=== PATIENT | female | born 1965 | race Caucasian/White ===

== ENCOUNTER 2019-07-15 | Emergency (ER) | payer OTHER | END 2019-07-15 15:50 | disposition home or self-care (01) | CPT/HCPCS: 93005; 85025; 80048; 36415; 83735; 81025; 85610; 80076; 81003; 84484; 83880; 87804 ×2; 70450; 96360; 99285; J7030 ==

== ENCOUNTER 2020-06-17 21:43 | Emergency (ER) | payer OTHER ==
--- OUTSIDE RECORDS SUMMARY | 2020-06-17 21:45 | XMS REPORT | Continuity of Care Document ---
:1965 Author Organization [facility] t Address [address] [place] [address] Care Team Providers Name Role Phone Lab, Fam Pob I Attending Clinician Unavailable Problems This patient has no known problems. Allergies, Adverse Reactions, Alerts This patient has no known allergies or adverse reactions. Medications This patient has no known medications. Procedures This patient has no known procedures. Encounters Start End Encounter Admission Attending Care Care Encounter Source Date/Time Date/Time Type Type Clinicians Facility Department ID 2020-06-14 2020-06-14 Laboratory Lab, [facility] [id number] 13:17:52 13:37:52 Only Fam Pob I [facility] [id number] [place] [id number] Professio [phone] nal 044 Office Building One Results This patient has no known results.
[2020-06-17 22:36] LABS: Absolute Lymphocytes (CBC) 1.2 K/uL (0.7-4.9); Basophils % 0.6 % (0-1.3); Hematocrit 39.4 % (36.0-45.0); Lymphocytes % 13.1 % (15.3-44.8); MPV 7.8 fL (7.6-11.3); RBC Red Blood Cell Count 4.51 M/uL (3.86-4.86)
[2020-06-17 22:43] LABS: Protime INR 1.06
[2020-06-17 23:13] LABS: ALT/SGPT 28 U/L (12-78); AST/SGOT 14 U/L (15-37); Albumin 4.4 g/dL (3.4-5.0); Alkaline Phosphatase 124 U/L (45-117); BUN Blood Urea Nitrogen 11 mg/dL (7-18); Bicarbonate 27 mmol/L (21-32); Bilirubin Direct 0.2 mg/dL (0-0.2); Bilirubin Total 0.7 mg/dL (0.2-1.0); Glucose Level 106 mg/dL (74-106); Potassium 3.7 mmol/L (3.5-5.1); Protein, Total 8.3 g/dL (6.4-8.2); Sodium Level 143 mmol/L (136-145)
[2020-06-17 23:16] LABS: Barbiturates NEGATIVE (NEGATIVE); Benzodiazepines NEGATIVE (NEGATIVE); Cocaine NEGATIVE (NEGATIVE); METHAMPHETAM NEGATIVE (NEGATIVE); Methadone NEGATIVE (NEGATIVE); Opiates NEGATIVE (NEGATIVE); Phencyclidine NEGATIVE (NEGATIVE); THC Cannibis NEGATIVE (NEGATIVE)
[2020-06-17 23:27] LABS: Urine Blood TRACE (NEG); Urine Glucose NEGATIVE (NEG); Urine Protein 1+ (NEG); Urine Specific Gravity >1.030 (1.005-1.030); Urine pH 5.5 (5.0-7.0)
--- NOTE | 2020-06-18 01:45 | ER ---
Nurse's Notes [facility] Name: Anastacia Flores Age: 54 yrs Sex: Female : 1965 Arrival Date: 06/17/2020 Time: 21:44 Bed 20 Private MD: Diagnosis: Major depressive disorder, single episode, unspecified Presentation: 06/17 21:44 Chief complaint: Patient states: I am not suicidal nor am I homicidal. My did jb4 this to me. I said I did not want to be here because I wanted to leave the house and he would not let me leave. I never un-holstered the gun, it remained in its holster the entire time. I took it in bedroom because I thought it was a bad idea to fight someone with a gun in my hand. EMS states: Pt was brought in for reported SI. Law enforcement wrote an KEIRY. PT was found very upset and crying after having a fight with her . The pt took the gun into the bedroom. Law enforcement states " The told us she said "This isn't for you, this is for me." referring to the gun. The fire arm was still in its holster when we arrive on scene. 21:44 Coronavirus screen: Client denies travel out of the [place] in the last 14 days. Ebola jb4 Screen: Patient negative for fever greater than or equal to 101.5 degrees Fahrenheit, and additional compatible Ebola Virus Disease symptoms. Initial Sepsis Screen: Does the patient meet any 2 criteria? HR > 90 bpm. Yes Does the patient have a suspected source of infection? No. Patient's initial sepsis screen is negative. Risk Assessment: Do you want to hurt yourself or someone else? Patient reports no desire to harm self or others. Onset of symptoms was June 17, 2020. Transition of care: patient was not received from another setting of care. 21:44 Method Of Arrival: EMS: [facility] jb4 21:44 Acuity: LETITIA 2 jb4 Historical: - Allergies: 21:44 No Known Allergies; jb4 - Home Meds: 21:44 ropinirole 0.25 mg Oral tab 1 tab [Active]; lorazepam 0.5 mg Oral tab 0.5 tab 3 times jb4 per day [Active]; duloxetine 60 mg Oral cpDR 1 cap once daily [Active]; Zofran (as hydrochloride) 4 mg Oral tab 1 tabs 3 times per day [Active]; - PMHx: 21:44 Anxiety; RLS; Depression; jb4 - PSHx: 21:44 breast augmentation; jb4 - Immunization history:: Adult Immunizations up to date, Last tetanus immunization: up to date Flu vaccine is not up to date. - Social history:: Smoking status: Patient denies any tobacco usage or history of. Patient uses alcohol, occasionally. Patient/guardian denies using street drugs. Screenin:44 Abuse screen: Denies threats or abuse. Nutritional screening: No deficits noted. jb4 Tuberculosis screening: No symptoms or risk factors identified. Fall Risk None identified. Assessment: 21:44 General: Appears in no apparent distress. uncomfortable, Behavior is cooperative, jb4 agitated, anxious. Pain: Denies pain. Neuro: Level of Consciousness is awake, alert, obeys commands, Oriented to person, place, time, situation. Cardiovascular: Respiratory: Airway is patent Respiratory effort is even, unlabored, Respiratory pattern is regular, symmetrical. GI: No signs and/or symptoms were reported involving the gastrointestinal system. : No signs and/or symptoms were reported regarding the genitourinary system. EENT: No signs and/or symptoms were reported regarding the EENT system. Derm: Skin is intact, Skin is pink, warm \\T\\ dry. Musculoskeletal: Circulation, motion, and sensation intact. Range of motion:. 06/18 00:54 Reassessment: Patient appears in no apparent distress at this time. Patient and/or jb4 family updated on plan of care and expected duration. Pain level reassessed. Patient is alert, oriented x 3, equal unlabored respirations, skin warm/dry/pink. PT speaking with [facility] Emergency Rep. 03:15 Reassessment: Patient appears in no apparent distress at this time. Patient and/or jb4 family updated on plan of care and expected duration. Pain level reassessed. Patient is alert, oriented x 3, equal unlabored respirations, skin warm/dry/pink. Psych: 06/17 21:44 Violet Suicide Severity Screening: In the past month, have you wished you were jb4 or wished you could go to sleep and not wake up? Patient responds "No." "In the past month, have you actually had any thoughts of killing yourself?" Patient responds "no." "In your lifetime, have you ever done anything, started to do anything, or prepared to do anything to end your life?" Patient responds "no.". Subjective: Patient's mood is sad, Delusions are denied, Hallucinations are denied. Objective: Patient is cooperative, Speech is normal. Interventions: Removed personal items and placed in bag. Patient placed in hospital gown. Searched person for dangerous items. Urine collected and sent for urine drug test. Belonging list filled out. Suicide Risk Assessment: Sad Person Scale: Sex of patient: Female: Score 0 points. Age of patient: Score 0 point if patient falls outside of specified age parameters. Depression: Score 1 point if signs of depression are present. Previous Attempt: Score 0 point if patient has not previously attempted suicide. Substance Abuse: Score 0 point if patient does not abuse alcohol or drugs. Rational Thinking: Score 0 point if patient has rational thinking. Social Support: Score 1 point if social support is lacking and/or unavailable. Organized Plan: Score 0 if patient did not have an organized plan in place. Relationship: Score 0 point if patient has a spouse or domestic partner. Chronic Sickness: Score 0 point if patient does not have a chronic illness, debilitating, or severe disorder. TOTAL POINTS: If total points are 0-2, proposed clinical action is to send home with follow-up. Safety Checks: Personal items have been removed. Door is open. Pt denies substance abuse. 21:44 Commitment: Patient will be an involuntary commitment. jb4 Vital Signs: 21:44 BP 126 / 89; Pulse 121; Resp 20; Temp 98.4(O); Pulse Ox 99% on R/A; Weight 90.72 kg jb4 (R); Height 5 ft. 7 in. (170.18 cm) (R); Pain 0/10; 21:44 Body Mass Index 31.32 (90.72 kg, 170.18 cm) jb4 ED Course: :44 Patient arrived in ED. cl3 21:44 Arm band placed on right wrist. jb4 21:44 Patient has correct armband on for positive identification. Bed in low position. Call jb4 light in reach. Side rails up X 1. Pulse ox on. NIBP on. 21:54 Juliano Bazan PA is PHCP. cp 21:54 Will Soto MD is Attending Physician. cp 22:44 Ruddy Muniz, RN is Primary Nurse. jb4 22:50 Triage completed. jb4 06/18 00:03 contacted [facility] [phone] spoke to [facility] to have a screener mw2 evaluate patient. 00:48 patient talking to Vaishali the [facility] Emergency Screener. mw2 03:15 No provider procedures requiring assistance completed. Patient did not have IV access jb4 during this emergency room visit. Administered Medications: No medications were administered Outcome: 01:45 Discharge ordered by MD. cp 03:15 Discharged to home ambulatory. jb4 03:15 Condition: stable 03:15 Discharge instructions given to patient, Instructed on discharge instructions, follow up and referral plans. Demonstrated understanding of instructions, follow-up care. 03:16 Patient left the ED. jb4 Signatures: Juliano Bazan PA PA cp Ruddy Muniz, RN RN jb4 Mahesh Kohler mw2 Yaneth Melendez cl3
--- NOTE | 2020-06-18 01:45 | EDPHYS ---
Physician Documentation [facility] Name: Anastacia Flores Age: 54 yrs Sex: Female : 1965 Arrival Date: 06/17/2020 Time: 21:44 Bed 20 Private MD: ED Physician Will Soto HPI: 06/17 22:00 This 54 yrs old Female presents to ER via Unassigned with complaints of cp Depression. 22:00 The patient presents to the emergency department with depression, over a relationship, cp reports marital difficulties. Onset: The symptoms/episode began/occurred over past several months. Past psychiatric history: Prior diagnosis: no previous psychiatric diagnosis known. Historical: - Allergies: :44 No Known Allergies; jb4 - Home Meds: 21:44 ropinirole 0.25 mg Oral tab 1 tab [Active]; lorazepam 0.5 mg Oral tab 0.5 tab 3 times jb4 per day [Active]; duloxetine 60 mg Oral cpDR 1 cap once daily [Active]; Zofran (as hydrochloride) 4 mg Oral tab 1 tabs 3 times per day [Active]; - PMHx: 21:44 Anxiety; RLS; Depression; jb4 - PSHx: 21:44 breast augmentation; jb4 - Immunization history:: Adult Immunizations up to date, Last tetanus immunization: up to date Flu vaccine is not up to date. - Social history:: Smoking status: Patient denies any tobacco usage or history of. Patient uses alcohol, occasionally. Patient/guardian denies using street drugs. ROS: 22:05 Constitutional: Negative for body aches, chills, fever, poor PO intake. cp 22:05 Eyes: Negative for injury, pain, redness, and discharge. cp 22:05 Cardiovascular: Negative for chest pain. 22:05 Respiratory: Negative for cough, shortness of breath, wheezing. 22:05 Abdomen/GI: Negative for abdominal pain, nausea, vomiting, and diarrhea. 22:05 Neuro: Negative for altered mental status. 22:05 Psych: Positive for depression. 22:05 All other systems are negative. Exam: 22:10 Constitutional: The patient appears in no acute distress, alert, awake, cp non-diaphoretic, non-toxic, well developed, well nourished. 22:10 Head/Face: Normocephalic, atraumatic. cp 22:10 Chest/axilla: Inspection: normal, Palpation: is normal, no crepitus, no tenderness. 22:10 Respiratory: the patient does not display signs of respiratory distress, Respirations: normal, no use of accessory muscles, no retractions, labored breathing, is not present, Breath sounds: are clear throughout, no decreased breath sounds. 22:10 Abdomen/GI: Inspection: abdomen appears normal, Palpation: abdomen is soft and non-tender, in all quadrants. 22:10 Neuro: Orientation: to person, place \T\ time. Mentation: is normal, Motor: moves all fours, strength is normal. 22:10 Psych: Behavior/mood is depressed, Affect is calm, Delusions/hallucinations are not present. 22:51 Cardiovascular: Rate: tachycardic. cp 23:23 ECG was reviewed by the Attending Physician. Vital Signs: 21:44 BP 126 / 89; Pulse 121; Resp 20; Temp 98.4(O); Pulse Ox 99% on R/A; Weight 90.72 kg jb4 (R); Height 5 ft. 7 in. (170.18 cm) (R); Pain 0/10; 21:44 Body Mass Index 31.32 (90.72 kg, 170.18 cm) jb4 MDM: 21:55 Patient medically screened. 06/18 01:36 Data reviewed: vital signs, nurses notes, lab test result(s), EKG. ED course: consult cp performed with Adela, with [facility], who recommends discharge and outpatient f/u with therapist and counselor. 06/17 21:55 Order name: Acetaminophen 06/17 21:55 Order name: Basic Metabolic Panel 06/17 21:55 Order name: CBC with Diff; Complete Time: 22:52 06/17 22:52 Interpretation: Normal except: HARRISON% 77.1; LYM% 13.1. 06/17 21:55 Order name: ETOH Level; Complete Time: 23:54 06/17 23:58 Interpretation: ETOH < 10; Reviewed. 06/17 21:55 Order name: Hepatic Function; Complete Time: 23:54 06/17 23:57 Interpretation: Normal except: AST 14; ALK 124; TP 8.3; GLOB 3.9. 06/17 21:55 Order name: PT-INR; Complete Time: 22:52 06/17 21:55 Order name: Ptt, Activated; Complete Time: 22:52 06/17 21:55 Order name: Salicylate; Complete Time: 23:13 06/17 23:13 Interpretation: Reviewed. 06/17 21:55 Order name: Urine Drug Screen; Complete Time: 23:54 06/17 21:55 Order name: Acetaminophen Level; Complete Time: 23:54 EDMS 06/17 21:55 Order name: Basic Metabolic Panel; Complete Time: 23:54 EDMS 06/17 23:58 Interpretation: Normal except: CL 109; GFR 56. 06/17 22:57 Order name: Urine Dipstick--Ancillary (enter results) [facility] 06/17 22:57 Order name: Urine --Ancillary (enter results) [facility] 06/17 21:55 Order name: Urine Test (obtain specimen); Complete Time: 23:18 06/17 21:55 Order name: EKG; Complete Time: 21:56 06/17 21:55 Order name: EKG - Nurse/Tech; Complete Time: 23:18 06/17 21:55 Order name: IV Saline Lock; Complete Time: 23:18 06/17 21:55 Order name: Labs collected and sent; Complete Time: 23:19 06/17 21:55 Order name: Urine Dipstick-Ancillary (obtain specimen); Complete Time: 23:18 06/17 22:57 Order name: Urine Dipstick-Ancillary; Complete Time: 23:54 EDMS 06/17 23:58 Interpretation: Normal except: UBLD TRACE; UPROT 1+; UESTR TRACE. 06/17 22:57 Order name: Urine --Ancillary; Complete Time: 23:54 EDMS 06/17 23:47 Order name: SARS-COV-2 RT PCR; Complete Time: 23:54 EDMS EC/13 23:23 Rate is 84 beats/min. Rhythm is regular. NV interval is normal. QRS interval is normal. cp QT interval is normal. T waves are Inverted in lead aVR. Interpreted by me. Reviewed by me. Administered Medications: No medications were administered Disposition: 06/18 06:48 Co-signature as Attending Physician, Will Soto MD. rn Disposition: 06/18/20 01:45 Discharged to Home. Impression: Major depressive disorder, single episode, unspecified. - Condition is Stable. - Discharge Instructions: Major Depressive Disorder. - Medication Reconciliation Form, Thank You Letter, Antibiotic Education, Prescription Opioid Use form. - Follow up: Private Physician; When: 1 - 2 days; Reason: Recheck today's complaints. - Problem is new. - Symptoms have improved. Signatures: Dispatcher [employer] [facility] Will Soto MD MD rn Juliano Bazan PA PA cp Bryson, James RN RN jb4 Corrections: (The following items were deleted from the chart) 06/17 23:04 22:15 CORONAVIRUS+MR.LAB.BRZ ordered. [facility] 06/18 03:16 01:45 06/18/2020 01:45 Discharged to Home. Impression: Major depressive disorder, jb4 single episode, unspecified. Condition is Stable. Forms are Medication Reconciliation Form, Thank You Letter, Antibiotic Education, Prescription Opioid Use. Follow up: Private Physician; When: 1 - 2 days; Reason: Recheck today's complaints. Problem is new. Symptoms have improved. cp
[2020-06-18 03:46] VITALS: BP 126/89; TEMP 98.4; O2SAT 99
--- NOTE | 2020-06-18 10:22 | EKG ---
Test Date: 2020-06-17 Test Time: 23:15:16 Draw Frame Tender: SHWETA MEASUREMENT RESULTS: Intervals: Rate: 84 WY: 152 QRSD: 86 QT: 374 QTc: 441 [place]: P: 69 WY: 152 QRS: 17 T: 64 INTERPRETIVE STATEMENTS: Normal sinus rhythm Cannot rule out Anterior infarct, age undetermined Abnormal ECG Compared to ECG 07/15/2019 13:19:23 No significant changes Electronically Signed On 06-18-20 10:21:17 CDT by Joe Valenzuela
== END 2020-06-18 03:16 | disposition home or self-care (01) ==
LOC: ER 21:43
DX: F32.9 Major depressive disorder, single episode, unspecified (principal); Z20.822 Contact with and (suspected) exposure to COVID-19
CPT/HCPCS: 93005; 85025; 80048; 36415; 80320; 80329 ×2; 81025; 85610; 80076; 80307 ×8; 85730; 81003; U0003; 99284

== ENCOUNTER 2020-06-29 14:30 | Emergency (ER) | payer OTHER ==
--- OUTSIDE RECORDS SUMMARY | 2020-06-29 14:32 | XMS REPORT | Continuity of Care Document ---
:1965 Author Organization [facility] t Address [address] [place] [address] Care Team Providers Name Role Phone Lab, [...] Facility Department ID 2020-06-14 2020-06-14 Laboratory Lab, [facility] [id number] 13:17:52 13:37:52 Only Fam Pob I [facility] [id number] [place] [id number] Professio [phone] nal 044 Office Building One Results This patient has no known results.
--- NOTE | 2020-06-29 15:15 | EDPHYS ---
Physician Documentation [facility] Name: Anatsacia Flores Age: 54 yrs Sex: Female : 1965 Arrival Date: 06/29/2020 Time: 14:32 Bed 16 Private MD: ED Physician Vitor Rios HPI: 06/29 14:50 This 54 yrs old Female presents to ER via EMS with complaints of Psych cp Problem. 14:50 The patient presents to the emergency department with depression, over a relationship, cp concerned wants a divorce. Onset: The symptoms/episode began/occurred gradually, and became worse today. Past psychiatric history: Prior diagnosis: depression, anxiety. Associated signs and symptoms: Pertinent negatives: abdominal pain, chest pain, delusions, hallucinations, homicidal ideation, substance abuse, suicide ideation. Historical: - Allergies: 14:44 No Known Allergies; jd3 - Home Meds: 14:44 duloxetine 60 mg Oral cpDR 1 cap once daily [Active]; lorazepam 0.5 mg Oral tab 0.5 tab jd3 3 times per day [Active]; ropinirole 0.25 mg Oral tab 1 tab [Active]; Zofran (as hydrochloride) 4 mg Oral tab 1 tabs 3 times per day [Active]; - PMHx: 14:44 Anxiety; Depression; RLS; jd3 - PSHx: 14:44 breast augmentation; jd3 - Immunization history:: Adult Immunizations unknown. - Social history:: Smoking status: unknown. ROS: 14:55 Constitutional: Negative for body aches, chills, fever, poor PO intake. cp 14:55 Eyes: Negative for injury, pain, redness, and discharge. cp 14:55 ENT: Negative for ear pain, sore throat, difficulty swallowing, difficulty handling secretions. 14:55 Cardiovascular: Negative for chest pain, edema, palpitations. 14:55 Respiratory: Negative for cough, shortness of breath, wheezing. 14:55 Abdomen/GI: Negative for abdominal pain, nausea, vomiting, and diarrhea. 14:55 Neuro: Negative for altered mental status, headache, weakness. 14:55 Psych: Positive for depression, Negative for auditory hallucinations, visual hallucinations, suicide gesture, suicidal ideation. 14:55 All other systems are negative. Exam: 15:00 Constitutional: The patient appears in no acute distress, alert, awake, cp non-diaphoretic, non-toxic, well developed, well nourished. 15:00 Head/Face: Normocephalic, atraumatic. cp 15:00 Eyes: Periorbital structures: appear normal, Conjunctiva: normal, no exudate, no injection, Sclera: no appreciated abnormality, Lids and lashes: appear normal, bilaterally. 15:00 ENT: External ear(s): are unremarkable, Nose: is normal, Posterior pharynx: Airway: no evidence of obstruction, patent. 15:00 Chest/axilla: Inspection: normal. 15:00 Cardiovascular: Rate: normal, Rhythm: regular, Edema: is not appreciated, JVD: is not appreciated. 15:00 Respiratory: the patient does not display signs of respiratory distress, Respirations: normal, no use of accessory muscles, no retractions, labored breathing, is not present, Breath sounds: are clear throughout, no decreased breath sounds. 15:00 Abdomen/GI: Exam negative for discomfort, distension, guarding, Inspection: abdomen appears normal. 15:00 Neuro: Orientation: to person, place \T\ time. Mentation: is normal, Cerebellar function: is grossly normal, Motor: moves all fours, strength is normal, Sensation: is normal. Vital Signs: 15:15 BP 137 / 96; Pulse 84; Resp 17 S; Pulse Ox 99% on R/A; jd3 17:07 BP 120 / 80; Pulse 88; Resp 16 S; Pulse Ox 97% on R/A; jd3 MDM: 14:45 Patient medically screened. cp 15:30 Differential diagnosis: acute psychotic break, depression, suicidal ideation, homicidal cp ideation. 17:51 Data reviewed: vital signs, nurses notes, and as a result, I will discharge patient. cp 06/29 17:09 Order name: Urine Dipstick--Ancillary (enter results) em1 06/29 17:09 Order name: Urine --Ancillary (enter results) em1 06/29 14:46 Order name: Urine Dipstick-Ancillary (obtain specimen); Complete Time: 17:08 cp 06/29 14:46 Order name: Urine Test (obtain specimen); Complete Time: 17:08 cp 06/29 15:26 Order name: Diet Regular; Complete Time: 15:31 cp Administered Medications: 15:13 Drug: Ativan 1 mg Route: PO; jd3 18:03 Follow up: Response: No adverse reaction aa5 Disposition: 06/30 07:26 Co-signature as Attending Physician, Vitor Rios MD I agree with the assessment and kdr plan of care. Disposition: 06/29/20 17:52 Discharged to Home. Impression: Major depressive disorder, recurrent. - Condition is Stable. - Discharge Instructions: Major Depressive Disorder. - Medication Reconciliation Form, Thank You Letter, Antibiotic Education, Prescription Opioid Use form. - Follow up: Private Physician; When: Upon discharge from the Emergency Department; Reason: Recheck today's complaints. - Problem is an ongoing problem. - Symptoms have improved. Signatures: Dispatcher [employer] EDMS Vitor Rios MD MD kdr Shameka Rodríguez RN RN Maribeth Haney RN RN aa5 Juliano Bazan PA PA cp Davies, Jonathon, RN RN jd3 Corrections: (The following items were deleted from the chart) 06/29 17:51 15:14 06/29/2020 15:14 Transfer ordered to [facility]. Diagnosis is Major cp depressive disorder, recurrent. Reason for transfer: Higher level of care. Accepting physician is Doctor. Condition is Stable. Problem is an ongoing problem. Symptoms have improved. cp 18:03 17:52 06/29/2020 17:52 Discharged to Home. Impression: Major depressive disorder, aa5 recurrent. Condition is Stable. Forms are Medication Reconciliation Form, Thank You Letter, Antibiotic Education, Prescription Opioid Use. Follow up: Private Physician; When: Upon discharge from the Emergency Department; Reason: Recheck today's complaints. Problem is an ongoing problem. Symptoms have improved. cp 20:34 18:03 06/29/2020 17:52 Discharged to Home. Impression: Major depressive disorder, bb recurrent. Condition is Stable. Discharge Instructions: Major Depressive Disorder. Forms are Medication Reconciliation Form, Thank You Letter, Antibiotic Education, Prescription Opioid Use. Follow up: Private Physician; When: Upon discharge from the Emergency Department; Reason: Recheck today's complaints. Problem is an ongoing problem. Symptoms have improved. aa5 20:48 20:34 06/29/2020 17:52 Discharged to Home. Impression: Major depressive disorder, bb recurrent. Condition is Stable. Discharge Instructions: Major Depressive Disorder. Forms are Medication Reconciliation Form, Thank You Letter, Antibiotic Education, Prescription Opioid Use. Follow up: Private Physician; When: Upon discharge from the Emergency Department; Reason: Recheck today's complaints. Problem is an ongoing problem. Symptoms have improved. bb
--- NOTE | 2020-06-29 15:15 | ER ---
Nurse's Notes [facility] Name: Anastacia Folres Age: 54 yrs Sex: Female : 1965 Arrival Date: 06/29/2020 Time: 14:32 Bed 16 Private MD: Diagnosis: Major depressive disorder, recurrent Presentation: 06/29 14:23 Chief complaint: EMS states: Pt. is 54 yr. old, A \T\ O x 4. Wants a mental evaluation. rb3 Depressed because her wants a divorce after 23 years of marriage and she was recently diagnosed with bipolar disorder. Denies suicidal or homicidal ideations. NKA. Home medications Duloxetine and Hydroxyzine. Vital signs are stable. 14:43 Coronavirus screen: At this time, the client does not indicate any symptoms associated jd3 with coronavirus-19. Ebola Screen: Patient negative for fever greater than or equal to 101.5 degrees Fahrenheit, and additional compatible Ebola Virus Disease symptoms. Initial Sepsis Screen: Does the patient meet any 2 criteria? No. Patient's initial sepsis screen is negative. Does the patient have a suspected source of infection? No. Patient's initial sepsis screen is negative. Risk Assessment: Do you want to hurt yourself or someone else? Patient reports no desire to harm self or others. Onset of symptoms was June 29, 2020. 14:43 Acuity: LETITIA 3 jd3 14:43 Method Of Arrival: EMS: [facility] jd3 Historical: - Allergies: 14:44 No Known Allergies; jd3 - Home Meds: 14:44 duloxetine 60 mg Oral cpDR 1 cap once daily [Active]; lorazepam 0.5 mg Oral tab 0.5 tab jd3 3 times per day [Active]; ropinirole 0.25 mg Oral tab 1 tab [Active]; Zofran (as hydrochloride) 4 mg Oral tab 1 tabs 3 times per day [Active]; - PMHx: 14:44 Anxiety; Depression; RLS; jd3 - PSHx: 14:44 breast augmentation; jd3 - Immunization history:: Adult Immunizations unknown. - Social history:: Smoking status: unknown. Screenin:15 Abuse screen: Denies threats or abuse. Nutritional screening: No deficits noted. jd3 Tuberculosis screening: No symptoms or risk factors identified. Fall Risk Ambulatory Aid- None/Bed Rest/Nurse Assist (0 pts). Gait- Normal/Bed Rest/Wheelchair (0 pts) Mental Status- Oriented to own ability (0 pts). Total Terrell Fall Scale indicates No Risk (0-24 pts). Assessment: 15:13 General: Appears in no apparent distress. comfortable, Behavior is calm, cooperative, jd3 appropriate for age, crying. Pain: Denies pain. Neuro: Level of Consciousness is awake, alert, obeys commands, Oriented to person, place, time, situation. Cardiovascular: Denies chest pain, Capillary refill < 3 seconds Patient's skin is warm and dry. Respiratory: Airway is patent Respiratory effort is even, unlabored, Respiratory pattern is regular, symmetrical, Denies cough, shortness of breath. GI: No signs and/or symptoms were reported involving the gastrointestinal system. : No signs and/or symptoms were reported regarding the genitourinary system. EENT: No signs and/or symptoms were reported regarding the EENT system. Derm: Skin is intact, Skin is dry, Skin is normal, Skin temperature is warm. Musculoskeletal: Circulation, motion, and sensation intact. Range of motion: intact in all extremities. 15:15 Reassessment: Pt states her doctor has arranged for her to be admitted to psych aa5 facility, pt reports she is a pt at [facility]. . 15:23 Reassessment: Spoke to Sharita with [facility] and states that they will aa5 send transportation for pt to be taken to psych facility arranged by pt's doctor, pt will have to be dc'd to transportation personnel when they get here, ETA 1 1/2 hrs. PA was notified. . 17:06 Reassessment: Patient appears in no apparent distress at this time. Patient and/or jd3 family updated on plan of care and expected duration. Pain level reassessed. Patient is alert, oriented x 3, equal unlabored respirations, skin warm/dry/pink. awaiting transportation for transfer. 18:00 Reassessment: Patient is alert, oriented x 3, equal unlabored respirations, skin aa5 warm/dry/pink. 20:44 Reassessment: pt was returned by EMS who states that [facility] had not accepted bb the pt and that they did not have any beds until tomorrow morning. Pt was told by ED provider that we could start the process over again and she went out to vape and then she eloped. Vital Signs: 15:15 BP 137 / 96; Pulse 84; Resp 17 S; Pulse Ox 99% on R/A; jd3 17:07 BP 120 / 80; Pulse 88; Resp 16 S; Pulse Ox 97% on R/A; jd3 ED Course: 14:32 Patient arrived in ED. em1 14:39 Juliano Bazan PA is PHCP. cp 14:39 Vitor Rios MD is Attending Physician. cp 14:43 Michael Holland, RN is Primary Nurse. jd3 14:43 Triage completed. jd3 14:44 Arm band placed on. jd3 15:16 Patient has correct armband on for positive identification. Bed in low position. Call jd3 light in reach. Side rails up X 1. Pulse ox on. NIBP on. 18:00 No provider procedures requiring assistance completed. Patient did not have IV access aa5 during this emergency room visit. 20:28 Primary Nurse role handed off by Michael Holland RN bb Administered Medications: 15:13 Drug: Ativan 1 mg Route: PO; jd3 18:03 Follow up: Response: No adverse reaction aa5 Outcome: 15:14 ER care complete, transfer ordered by MD. cp 17:52 Discharge ordered by MD. cp 18:00 Discharged to [facility] (EMS will transport the pt to psych facility per pt's aa5 doctor) 18:00 Condition: stable 18:00 Instructed on discharge instructions, follow up and referral plans. Demonstrated understanding of instructions, follow-up care. 18:03 Patient left the ED. aa5 20:34 Patient left the ED. bb 20:48 Patient left the ED. bb Signatures: Shameka Rodríguez RN Alex Becker em1 Maribeth Driver RN RN aa5 Juliano Bazan PA PA cp Michael Holland, CONSTANCE NOLASCO jShanique Escalona RN RN rb3
[2020-06-29] MEDS ORDERED: LORAZEPAM 1 MG TABLET ONE (15:26)
[2020-06-29 19:20] LABS: Urine Blood NEGATIVE (Negative); Urine Glucose NEGATIVE (Negative); Urine Protein NEGATIVE (NEG)
[2020-06-29 19:53] VITALS: BP 120/80; O2SAT 97
== END 2020-06-29 20:48 | disposition home or self-care (01) ==
LOC: ER 14:30
DX: F33.9 Major depressive disorder, recurrent, unspecified (principal); Z98.82 Breast implant status
CPT/HCPCS: 81003; 81025; 99283

== ENCOUNTER → 2020-06-29 | Emergency (ER) | payer OTHER ==
--- OUTSIDE RECORDS SUMMARY | 2020-06-29 20:39 | XMS REPORT | Continuity of Care Document ---
:1965 Author Organization [facility] t Address [address] [place] [address] Care Team Providers Name Role Phone Andrzej Causey MD Primary Care Physician Lab, Fam Pob I Attending Clinician Unavailable Problems This patient has no known problems. Allergies, Adverse Reactions, Alerts This patient has no known allergies or adverse reactions. Family History Family Member Diagnosis Comments Start Date Stop Date Source Maternal grandmother Cancer [place] [facility] Natural mother Rheum arthritis [place] [facility] Paternal grandfather Stroke [place] Paternal grandmother Cancer [place] [facility] Paternal grandmother Heart disease [place] [facility] Natural father Cancer [facility] Natural father Diabetes [facility] Natural father Heart disease [place] [facility] Natural father Rheum arthritis [place] [facility] Maternal grandfather Alcohol abuse [place] [facility] Maternal grandfather Cancer [place] Maternal grandfather Depression [place] Maternal grandfather Heart disease [place] [facility] Social History Social Habit Start Date Stop Date Quantity Comments Source History of Current smoker [facility] tobacco use Tobacco use and 2019-02-08 2019-02-08 Never used [facility] exposure 00:00:00 00:00:00 Alcohol intake 2019-02-08 2019-02-08 Current drinker [place] [facility] 00:00:00 00:00:00 of alcohol (finding) Alcohol Comment 2018-12-29 2018-12-29 maybe twice a [place] [facility] 00:00:00 00:00:00 year Sex Ass[birth year] At [birth year] [facility] 00:00:00 00:00:00 Smoking Status Start Date Stop Date Source Former smoker 2019-02-08 00:00:00 2019-02-08 00:00:00 [place] Medications Ordered Filled Start Stop Current Ordering Indication Dosage Frequency Signature Comments Components Source Medication Medication Date Date Medication? Clinician (SIG) Name Name cholecalcif 2018-04 Yes 91869{t QD Take [place] willem, 1-04 bl} 10,000 [facility] vitamin D3, 15:26: tablets by st (VITAMIN 58 mouth D3) 5,000 daily. unit tablet celecoxib 2018-04 Yes 200mg Q.5D Take 200 [place] (CeleBREX) 1-04 mg by [facility] 200 MG 15:26: mouth 2 st capsule 58 (two) times a day. DULoxetine 2018-04 Yes 60mg QD Take 60 mg [place] (CYMBALTA) 0-31 by mouth Metho di 60 MG 00:00: daily. st capsule 00 DULoxetine Yes 90mg QD Take 90 mg [place] (CYMBALTA) 8-26 by mouth Metho di 30 MG 00:00: daily. st capsule 00 Procedures This patient has no known procedures. Plan of Care Planned Activity Planned Date Details Comments Source Future Scheduled 2019-11-06 INFLUENZA VACCINE [place] [facility] Test 00:00:00 [code = INFLUENZA VACCINE] Future Scheduled 2017-11-25 BREAST CANCER [facility] Test 00:00:00 SCREENING [code = BREAST CANCER SCREENING] Future Scheduled 2017-11-25 COLONOSCOPY SCREENING [place] [facility] Test 00:00:00 [code = COLONOSCOPY SCREENING] Future Scheduled 2017-11-25 SHINGLES VACCINES [place] [facility] Test 00:00:00 (#1) [code = SHINGLES VACCINES (#1)] Future Scheduled 1988-11-25 Screening for [facility] Test 00:00:00 malignant neoplasm of cervix (procedure) [code = 732329380] Future Scheduled 1985-11-25 Hepatitis C screening [place] [facility] Test 00:00:00 (procedure) [code = 046370064] Future Scheduled 1983 COVID-19 VACCINE (1) [facility] Test 00:00:00 [code = COVID-19 VACCINE (1)] Encounters Start End Encounter Admission Attending Care Care Encounter Source Date/Time Date/Time Type Type Clinicians Facility Department ID 2020-06-14 2020-06-14 Laboratory Lab, [facility] [id number] 13:17:52 13:37:52 Only Fam Pob I [facility] [id number] [place] [id number] Professio [phone] nal 044 [address] One Results This patient has no known results.
== END ==
LOC: ER 20:35
DX: Z02.9 Encounter for administrative examinations, unspecified (principal)

== ENCOUNTER 2020-07-03 21:57 | Emergency (ER) | payer OTHER ==
--- OUTSIDE RECORDS SUMMARY | 2020-07-03 22:00 | XMS REPORT | Continuity of Care Document ---
:1965 Author Organization [facility] t Address [address] [place] [address] Care Team Providers Name Role Phone Andrzej Causey MD Primary Care Physician Lab, Fam Pob I Attending Clinician Unavailable Problems This patient has no known problems. Allergies, Adverse Reactions, Alerts This patient has no known allergies or adverse reactions. Family History Family Member Diagnosis Comments Start Date Stop Date Source Maternal grandmother Cancer [place] Natural mother Rheum arthritis [place] Paternal grandfather Stroke [place] Paternal grandmother Cancer [place] Paternal grandmother Heart disease [place] Natural father Cancer [facility] Natural father Diabetes [facility] Natural father Heart disease [place] Natural father Rheum arthritis [place] Maternal grandfather Alcohol abuse [place] Maternal grandfather Cancer [place] Maternal grandfather Depression [place] Maternal grandfather Heart disease [place] Social History Social Habit Start Date Stop Date Quantity Comments Source History of Current smoker [facility] tobacco use Tobacco use and 2019-02-08 2019-02-08 Never used [facility] ethodist exposure 00:00:00 00:00:00 Alcohol intake 2019-02-08 2019-02-08 Current drinker [place] 00:00:00 00:00:00 of alcohol (finding) Alcohol Comment 2018-12-29 2018-12-29 maybe twice a [place] 00:00:00 00:00:00 year Sex Ass[birth year] At [birth year] [facility] 00:00:00 00:00:00 Smoking Status Start Date Stop Date Source Former smoker 2019-02-08 00:00:00 2019-02-08 00:00:00 [place] [facility] Medications Ordered Filled Start Stop Current Ordering Indication Dosage Frequency Signature Comments Components Source Medication Medication Date Date Medication? Clinician (SIG) Name Name cholecalcif 2018-04 Yes [id number]{t QD Take [place] willem, 1-04 bl} [...] Future Scheduled 2019-11-06 INFLUENZA VACCINE [place] Test 00:00:00 [code = INFLUENZA VACCINE] Future Scheduled 2017-11-25 BREAST CANCER [facility] thodist Test 00:00:00 SCREENING [code = BREAST CANCER SCREENING] Future Scheduled 2017-11-25 COLONOSCOPY SCREENING [place] [facility] Test 00:00:00 [code = COLONOSCOPY SCREENING] Future Scheduled 2017-11-25 SHINGLES VACCINES [place] Test 00:00:00 (#1) [code = SHINGLES VACCINES (#1)] Future Scheduled 1988-11-25 Screening for [facility] thodist Test 00:00:00 malignant neoplasm of cervix (procedure) [code = 409035245] Future Scheduled 1985-11-25 Hepatitis C screening [place] [facility] Test 00:00:00 (procedure) [code = [id number]] Future Scheduled 1983 COVID-19 VACCINE (1) [facility] Test 00:00:00 [code = COVID-19 VACCINE (1)] Encounters Start End Encounter Admission Attending Care Care Encounter Source Date/Time Date/Time Type Type Clinicians Facility Department ID 2020-06-14 2020-06-14 Laboratory Lab, [facility] [id number] 13:17:52 13:37:52 Only Fam Pob I [facility] [id number] [place] [id number] Professio [phone] nal 044 Office Building One Results This patient has no known results.
[2020-07-03 22:55] LABS: Basophils % 0.7 % (0-1.3); Lymphocytes % 28.3 % (15.3-44.8); MPV 7.6 fL (7.6-11.3)
[2020-07-03 23:21] LABS: Protime INR 1.02
[2020-07-03 23:25] LABS: Barbiturates NEGATIVE (NEGATIVE); Benzodiazepines NEGATIVE (NEGATIVE); Cocaine NEGATIVE (NEGATIVE); METHAMPHETAM NEGATIVE (NEGATIVE); Methadone NEGATIVE (NEGATIVE); Opiates NEGATIVE (NEGATIVE); Phencyclidine NEGATIVE (NEGATIVE); THC Cannibis NEGATIVE (NEGATIVE)
[2020-07-03 23:33] LABS: ALT/SGPT 18 U/L (12-78); AST/SGOT 12 U/L (15-37); Alkaline Phosphatase 106 U/L (45-117); BUN Blood Urea Nitrogen 11 mg/dL (7-18); Bicarbonate 27 mmol/L (21-32); Bilirubin Direct 0.1 mg/dL (0-0.2); Bilirubin Total 0.5 mg/dL (0.2-1.0); Glucose Level 91 mg/dL (74-106); Potassium 3.6 mmol/L (3.5-5.1); Protein, Total 7.4 g/dL (6.4-8.2); Sodium Level 142 mmol/L (136-145)
[2020-07-04 00:41] LABS: Urine Blood TRACE (Negative); Urine Glucose NEGATIVE (Negative); Urine Protein NEGATIVE (NEG)
[2020-07-04] MEDS ORDERED: LORazepam 2 MG/ML VIAL ONE (04:42)
--- NOTE | 2020-07-04 04:49 | EDPHYS ---
Physician Documentation [facility] Name: Anastacia Flores Age: 54 yrs Sex: Female : 1965 Arrival Date: 07/03/2020 Time: 22:06 Bed 16 Private MD: Ever Causey ED Physician Ozzy Shaver HPI: 07/04 03:20 This 54 yrs old Female presents to ER via EMS with complaints of Psych tw4 Problem. 03:20 The patient presents to the emergency department with depression, over unknown tw4 circumstances. Onset: The symptoms/episode began/occurred today. Past psychiatric history: Prior diagnosis: depression. Associated signs and symptoms: The patient has no apparent associated signs or symptoms. The patient has not experienced similar symptoms in the past. 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 - Social history:: Smoking status: Patient denies any tobacco usage or history of. ROS: 07/04 03:20 Constitutional: Negative for fever, chills, and weight loss, Eyes: Negative for injury, tw4 pain, redness, and discharge, Cardiovascular: Negative for chest pain, palpitations, and edema, Respiratory: Negative for shortness of breath, cough, wheezing, and pleuritic chest pain, Abdomen/GI: Negative for abdominal pain, nausea, vomiting, diarrhea, and constipation, Back: Negative for injury and pain, MS/Extremity: Negative for injury and deformity, Skin: Negative for injury, rash, and discoloration. Neuro: Negative for headache, weakness, numbness, tingling, and seizure. Neuro: Positive for Psych: Positive for anxiety, depression, suicide gesture, suicidal ideation, Negative for drug dependence, alcohol dependence, auditory hallucinations, visual hallucinations, homicidal ideation, insomnia. Exam: 03:20 Constitutional: This is a well developed, well nourished patient who is awake, alert, tw4 and in no acute distress. Head/Face: Normocephalic, atraumatic. Chest/axilla: Normal chest wall appearance and motion. Nontender with no deformity. No lesions are appreciated. Cardiovascular: Regular rate and rhythm with a normal S1 and S2. No gallops, murmurs, or rubs. Normal PMI, no JVD. No pulse deficits. Respiratory: Lungs have equal breath sounds bilaterally, clear to auscultation and percussion. No rales, rhonchi or wheezes noted. No increased work of breathing, no retractions or nasal flaring. Abdomen/GI: Soft, non-tender, with normal bowel sounds. No distension or tympany. No guarding or rebound. No evidence of tenderness throughout. Back: No spinal tenderness. No costovertebral tenderness. Full range of motion. Skin: Warm, dry with normal turgor. Normal color with no rashes, no lesions, and no evidence of cellulitis. MS/ Extremity: Pulses equal, no cyanosis. Neurovascular intact. Full, normal range of motion. Neuro: Awake and alert, GCS 15, oriented to person, place, time, and situation. Cranial nerves II-XII grossly intact. Motor strength 5/5 in all extremities. Sensory grossly intact. Cerebellar exam normal. Normal gait. 03:20 Psych: exam not indicated, Behavior/mood is pleasant, Affect is animated, Oriented to person, place, time, Patient has no thoughts/intents to harm self or others. Vital Signs: 07/03 22:22 BP 127 / 95; Pulse 88; Resp 16; Temp 98.5; Pulse Ox 98% ; Weight 95.25 kg; Height 5 ft. zb 10 in. (177.80 cm); Pain 0/10; 07/04 04:11 BP 144 / 79 RA Supine (auto/reg); Pulse 82 MON; Resp 16 S; Temp 98.4; Pulse Ox 100% ; ds4 Pain 0/10; 08:40 BP 125 / 70; Pulse 80; Resp 16; Temp 97.8(TE); Pulse Ox 97% on R/A; mh5 07/03 22:22 Body Mass Index 30.13 (95.25 kg, 177.80 cm) zb MDM: 07/03 22:23 Patient medically screened. tw07/04 06:37 Differential diagnosis: drug withdrawal. acute psychotic break, depression. Data tw4 reviewed: vital signs, nurses notes. Data interpreted: Pulse oximetry: Interpretation:. Counseling: I had a detailed discussion with the patient and/or guardian regarding: the historical points, exam findings, and any diagnostic results supporting the discharge/admit diagnosis, lab results. Other consultation: pyschiatrist. Awaiting: transfer to another facility. 07/03 22:08 Order name: Acetaminophen tw 07/03 22:08 Order name: Basic Metabolic Panel [facility] 07/03 22:08 Order name: CBC with Diff tw 07/03 22:08 Order name: ETOH Level 07/03 22:08 Order name: Hepatic Function 07/03 22:08 Order name: PT-INR; Complete Time: 04:44 [facility] 07/03 22:08 Order name: Ptt, Activated; Complete Time: 04:44 [facility] 07/03 22:08 Order name: Salicylate; Complete Time: 04:44 tw 07/03 22:08 Order name: Urine Drug Screen; Complete Time: 04:44 tw 07/03 22:09 Order name: Acetaminophen Level; Complete Time: 04:44 EDTN 07/03 22:09 Order name: Basic Metabolic Panel; Complete Time: 04:44 EDTN 07/03 22:09 Order name: CBC with Automated Diff; Complete Time: 04:44 EDTN 07/03 22:09 Order name: Alcohol Serum/Plasma; Complete Time: 04:44 EDTN 07/03 22:09 Order name: Liver (Hepatic) Function; Complete Time: 04:44 EDTN 07/03 22:08 Order name: EKG; Complete Time: 22:09 [facility] 07/03 22:08 Order name: EKG - Nurse/Tech; Complete Time: 01:53 tw 07/03 22:08 Order name: IV Saline Lock; Complete Time: 22:45 tw 07/03 22:08 Order name: Labs collected and sent; Complete Time: 22:45 tw 07/03 22:08 Order name: Urine Dipstick-Ancillary (obtain specimen); Complete Time: 23:01 [facility] 07/03 23:02 Order name: Urine Dipstick--Ancillary (enter results); Complete Time: 04:44 sg 07/04 07:27 Order name: Diet Regular; Complete Time: 07:27 [facility] EC:32 Rate is 75 beats/min. Rhythm is regular. QRS [place] is Normal. NV interval is normal. QRS tw4 interval is normal. QT interval is normal. No Q waves. T waves are Normal. No ST changes noted. Clinical impression: Normal ECG. Interpreted by me. Reviewed by me. Administered Medications: 04:28 Drug: Ativan 1 mg Route: IVP; Site: right antecubital; 4 07:00 Follow up: Response: No adverse reaction iw Disposition: 07/04/20 04:48 Transfer ordered to Psych Facility. Diagnosis are Suicide attempt, Major depressive disorder, single episode. - Reason for transfer: Higher level of care. - Accepting physician is Dr Nolasco. - Condition is Stable. - Problem is new. - Symptoms are unchanged. Signatures: Dispatcher [employer] EDSerena Bennett RN RN iw Ruddy Muniz RN RN jb4 Ozzy Shaver MD MD tw4 Lucero Ruvalcaba RN RN zb Corrections: (The following items were deleted from the chart) 09:47 04:48 07/04/2020 04:48 Transfer ordered to Psych Facility. Diagnosis is Suicide iw attempt; Major depressive disorder, single episode. Reason for transfer: Higher level of care. Accepting physician is Dr Nolasco. Condition is Stable. Problem is new. Symptoms are unchanged. tw4
--- NOTE | 2020-07-04 04:49 | ER ---
Nurse's Notes [facility] Name: Anastacia Flores Age: 54 yrs Sex: Female : 1965 Arrival Date: 07/03/2020 Time: 22:06 Bed 16 Private MD: Ever Causey Diagnosis: Suicide attempt;Major depressive disorder, single episode Presentation: 07/03 22:22 Chief complaint: EMS states: Suicidal Ideation. patient attempted to inject ketamine zb and xylazine into her left hand vein. It blew. called EMS. Coronavirus screen:. Ebola Screen: No symptoms or risks identified at this time. Initial Sepsis Screen: Does the patient meet any 2 criteria? No. Patient's initial sepsis screen is negative. Does the patient have a suspected source of infection? No. Patient's initial sepsis screen is negative. Risk Assessment: Do you want to hurt yourself or someone else? Patient reports desire/thoughts of hurting themselves or someone else. Provider notified. Onset of symptoms was July 03, 2020. 22:22 Acuity: LETITIA 2 zb 22:22 Method Of Arrival: EMS: [facility] zb Triage Assessment: 22:32 General: Appears in no apparent distress. Behavior is agitated, crying. Pain: Denies zb pain. Neuro: Level of Consciousness is awake, alert, obeys commands, Oriented to person, place, time, situation. Cardiovascular: No deficits noted. Respiratory: No deficits noted. GI: No deficits noted. : No deficits noted. Derm: No deficits noted. Musculoskeletal: Range of motion: intact in all extremities. 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 - Social history:: Smoking status: Patient denies any tobacco usage or history of. Screenin:36 Abuse screen: Denies threats or abuse. Denies injuries from another. Nutritional zb screening: No deficits noted. Tuberculosis screening: No symptoms or risk factors identified. Fall Risk None identified. Assessment: 22:33 Reassessment: see triage note. zb 23:20 Reassessment: Mental health deputy at bedside. zb 07/04 00:30 Reassessment: Patient appears in no apparent distress at this time. Patient and/or jb4 family updated on plan of care and expected duration. Pain level reassessed. Patient is alert, oriented x 3, equal unlabored respirations, skin warm/dry/pink. 02:00 Reassessment: Patient appears in no apparent distress at this time. Patient and/or jb4 family updated on plan of care and expected duration. Pain level reassessed. Patient is alert, oriented x 3, equal unlabored respirations, skin warm/dry/pink. 04:15 Reassessment: Patient appears in no apparent distress at this time. Patient and/or jb4 family updated on plan of care and expected duration. Pain level reassessed. Patient is alert, oriented x 3, equal unlabored respirations, skin warm/dry/pink. Pt requesting to take home medications Cymbalta 60mg, Hydroxizine 25mg, and Ropinirole , provider gave verbal order for 1mg of Ativan IVP instead. 05:56 Reassessment: PT is resting peacefully in bed with eyes closed, respirations are even jb4 and unlabored with no s/s of pain or distress noted. Report called to CONSTANCE Mercado at [facility]. 07:00 Reassessment: Patient appears in no apparent distress at this time. No changes from jb4 previously documented assessment. Patient and/or family updated on plan of care and expected duration. Pain level reassessed. 08:30 Reassessment: Patient appears in no apparent distress at this time. Patient and/or iw family updated on plan of care and expected duration. Pain level reassessed. Patient is alert, oriented x 3, equal unlabored respirations, skin warm/dry/pink. pt sitting up eating breakfast. Psych: 07/03 22:37 [place] Suicide Severity Screening: "In the past month, have you actually had any zb thoughts of killing yourself?". [place] Suicide Severity Screening: In the past month, have you wished you were or wished you could go to sleep and not wake up? Patient responds "yes." "In the past month, have you actually had any thoughts of killing yourself?" Patient responds "yes." Additional [place] suicide severity screening questions to be further documented on paper forms. "In your lifetime, have you ever done anything, started to do anything, or prepared to do anything to end your life?" Patient responds "yes." Patient reports suicidal intent occurred greater than 3 months prior. Subjective: Patient's mood is hopeless, Delusions are denied, Hallucinations are denied Having thoughts of suicide. Plan for suicide is Inject ketamine and xylazine into system. Objective: Patient is cooperative, Speech is normal, Affect is appropriate. Interventions: Removed personal items and placed in bag. Patient placed in hospital gown. Searched person for dangerous items. Urine collected and sent for urine drug test. Belonging list filled out. Restraints: Patient placed in soft restraints as ordered by physician. Patient's physical safety, cardiac and respiratory status will continue to be monitored while in restraints. Suicide Risk Assessment: Sad Person Scale: Sex of patient: Female: Score 0 points. Age of patient: Score 0 point if patient falls outside of specified age parameters. Depression: Score 1 point if signs of depression are present. Previous Attempt: Score 1 point if patient has previously attempted suicide. Substance Abuse: Score 0 point if patient does not abuse alcohol or drugs. Rational Thinking: Score 1 point if patient is lacking rational thinking. Social Support: Score 1 point if social support is lacking and/or unavailable. Organized Plan: Score 1 point if patient had a plan in place. Relationship: Score 1 point if patient is , , , or for a single male Chronic Sickness: Score 0 point if patient does not have a chronic illness, debilitating, or severe disorder. TOTAL POINTS: If total points are 5-6, proposed clinical action is to strongly consider hospitalization, depending upon confidence in the follow-up arrangement. Implement suicide precautions. Safety Checks: Personal items have been removed. Door is open. No visitors are present at this time. Patient uses 07/04 09:00 Commitment: Patient will be an involuntary commitment. Commitment papers completed. iw Vital Signs: 07/03 22:22 BP 127 / 95; Pulse 88; Resp 16; Temp 98.5; Pulse Ox 98% ; Weight 95.25 kg; Height 5 ft. zb 10 in. (177.80 cm); Pain 0/10; 07/04 04:11 BP 144 / 79 RA Supine (auto/reg); Pulse 82 MON; Resp 16 S; Temp 98.4; Pulse Ox 100% ; ds4 Pain 0/10; 08:40 BP 125 / 70; Pulse 80; Resp 16; Temp 97.8(TE); Pulse Ox 97% on R/A; mh5 07/03 22:22 Body Mass Index 30.13 (95.25 kg, 177.80 cm) zb ED Course: 07/03 22:06 Patient arrived in ED. sg 22:06 Ever Causey MD is Private Physician. sg 22:08 Ozzy Shaver MD is Attending Physician. tw4 22:21 Lucero Ruvalcaba RN is Primary Nurse. zb 22:31 Triage completed. zb 22:45 Inserted saline lock: 20 gauge in right hand, using aseptic technique. Blood collected. dh4 23:32 Patient has correct armband on for positive identification. Placed in gown. Bed in low zb position. Side rails up X 1. Valuables inventory done. See valuables checklist. monitored. 23:32 Arm band placed on. zb 07/04 04:10 Faxed pt chart to [facility], [facility], [address], [facility], [facility], [facility], [facility], and [facility] between 04:10 and 04:14. 04:25 Jess from [facility] called to do Nurse to Nurse. tt3 04:42 The physician called to do Doc to Doc with Dr. Shaver. tt3 07:18 Primary Nurse role handed off by Lucero Ruvalcaba, CONSTANCE bd 07:57 Serena Reyna, CONSTANCE is Primary Nurse. iw 09:46 No provider procedures requiring assistance completed. IV discontinued, intact, iw bleeding controlled, No redness/swelling at site. Pressure dressing applied. Administered Medications: 04:28 Drug: Ativan 1 mg Route: IVP; Site: right antecubital; jb4 07:00 Follow up: Response: No adverse reaction iw Outcome: 04:48 ER care complete, transfer ordered by . tw4 09:46 Transferred by ground EMS Transfer form completed. X-rays sent w/ [place]. [place] [facility] [place] Condition: good 09:46 Instructed on the need for transfer, Demonstrated understanding of instructions. 09:47 Patient left the ED. 10:30 Discharge instructions given to iw Signatures: Leatha Cruz Steven, RN RN sg Serena Reyna RN RN Eugene Flores 4 Ruddy Muniz RN RN jb4 Ximena Freeman 5 Ozzy Shaver MD MD 4 Raj Salazar 4 Dusty Hua 3 Lucero Ruvalcaba RN RN zb Corrections: (The following items were deleted from the chart) 07:01 05:56 Reassessment: PT is resting peacefully in bed with eyes closed, respirations are jb4 even and unlabored with no s/s of pain or distress noted. jb4 10:30 09:46 Patient transferred, IV remains in place. [facility]
[2020-07-04 10:00] VITALS: BP 125/70; TEMP 97.8; O2SAT 97
--- NOTE | 2020-07-04 12:53 | EKG ---
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
== END 2020-07-04 09:47 ==
LOC: ER 21:57
DX: T41.292A Poisoning by other general anesthetics, intentional self-harm, initial encounter (principal); F32.9 Major depressive disorder, single episode, unspecified; Z98.82 Breast implant status
CPT/HCPCS: 36415; 80048; 80076; 80307; 80320; 80329; 81003; 85025; 85610; 85730; 93005; 96374; 99285